=== PATIENT | male | born 2005 | race Caucasian/White ===

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

== ENCOUNTER 2023-06-16 00:30 | Emergency (ER) | payer BC, OTHER ==
[2023-06-16 01:00] LABS: Absolute Lymphocytes (CBC) 2.3 K/uL (0.7-4.9); Hematocrit 45.3 % (39.6-49.0); Lymphocytes % 30.4 % (15.3-44.8); MCV 90.1 fL (80-100); MPV 8.5 fL (7.6-11.3); RBC Red Blood Cell Count 5.02 M/uL (4.33-5.43)
[2023-06-16] MEDS ORDERED: NA CHLORIDE 0.9% 1,000 ML ONE (01:02)
[2023-06-16 01:26] LABS: ALT/SGPT 27 U/L (16-61); Albumin 4.1 g/dL (3.4-5.0); Alkaline Phosphatase 86 U/L (45-117); BUN Blood Urea Nitrogen 5 mg/dL (7-18); Bicarbonate 23 mEq/L (21-32); Bilirubin Total 0.5 mg/dL (0.2-1.0); Glomerular Filtration Rate 98 ml/min (=/>90); Glucose Level 105 mg/dL (74-106); Protein, Total 7.3 g/dL (6.4-8.2); Sodium Level 137 mEq/L (136-145)
[2023-06-16 01:28] LABS: AST/SGOT 28 U/L (15-37); Magnesium 2.5 mg/dL (1.6-2.4); Troponin High Sensitivity < 3.0 pg/mL (<58.9)
--- NOTE | 2023-06-16 01:47 | ER ---
Nurse's Notes [facility] Name: Lester Malloy Age: 17 yrs Sex: Male : 2005 Arrival Date: 06/16/2023 Time: 00:30 Bed 15 Private MD: Diagnosis: Other seizures Presentation: 06/16 00:36 Chief complaint: EMS states: "He had been home from work about 20 minutes when a family vc1 member said he was seizing. When we arrived he was diaphoretic and nauseous. Once we arrived here he said he felt fine.". Coronavirus screen: Vaccine status: Patient reports being unvaccinated. Client denies travel out of the [place] in the last 14 days. At this time, the client does not indicate any symptoms associated with coronavirus-19. Ebola Screen: Patient negative for fever greater than or equal to 101.5 degrees Fahrenheit, and additional compatible Ebola Virus Disease symptoms Patient denies exposure to infectious person. Patient denies travel to an Ebola-affected area in the 21 days before illness onset. No symptoms or risks identified at this time. Initial Sepsis Screen: Does the patient meet any 2 criteria? HR > 90 bpm. No. Patient's initial sepsis screen is negative. Does the patient have a suspected source of infection? No. Patient's initial sepsis screen is negative. Risk Assessment: Do you want to hurt yourself or someone else? Patient reports no desire to harm self or others. Onset of symptoms was June 16, 2023. 00:36 Method Of Arrival: EMS: [facility] vc1 00:36 Acuity: SARAH 3 vc1 00:42 Care prior to arrival: IV initiated. 20 GA, in the left antecubital area. Activity vc1 prior to arrival: seizure. Triage Assessment: 00:43 General: Appears in no apparent distress. comfortable, Behavior is calm, cooperative, vc1 appropriate for age. Pain: Denies pain. EENT: No deficits noted. No signs and/or symptoms were reported regarding the EENT system. Neuro: [place] Agitation-Sedation Scale (RASS): 0 - Alert and Calm Level of Consciousness is awake, alert, obeys commands, Oriented to person, place, time, situation, Appropriate for age. Cardiovascular: No deficits noted. Respiratory: Airway is patent Respiratory effort is even, unlabored, Respiratory pattern is regular, symmetrical. GI: No deficits noted. No signs and/or symptoms were reported involving the gastrointestinal system. : No deficits noted. No signs and/or symptoms were reported regarding the genitourinary system. Derm: No deficits noted. No signs and/or symptoms reported regarding the dermatologic system. Musculoskeletal: No deficits noted. No signs and/or symptoms reported regarding the musculoskeletal system. Historical: - Allergies: 00:41 No Known Allergies; vc1 - Home Meds: 00:41 bupropion HCl 450 mg Oral Tablet, Extended Release 24 hr daily [Active]; vc1 - PMHx: 00:41 Depressive disorder; vc1 - PSHx: 00:41 None; vc1 - Immunization history:: Client reports having NOT received the Covid vaccine. - Social history:: Smoking status: Patient denies any tobacco usage or history of. - Family history:: not pertinent. Screenin:42 Abuse screen: Denies threats or abuse. Nutritional screening: No deficits noted. vc1 Tuberculosis screening: No symptoms or risk factors identified. 00:44 [facility] ED Fall Risk Assessment (Adult) History of falling in the last 3 months, vc1 including since admission No falls in past 3 months (0 pts) Confusion or Disorientation No (0 pts) Intoxicated or Sedated No (0 pts) Impaired Gait No (0 pts) Mobility Assist Device Used No (0 pt) Altered Elimination No (0 pt) Score/Fall Risk Level 0 - 2 = Low Risk Oriented to surroundings, Maintained a safe environment, Educated pt \\T\\ family on fall prevention, incl call for assistance when getting out of bed. Assessment: 01:35 Reassessment: No changes from previously documented assessment. Patient and/or family vc1 updated on plan of care and expected duration. Pain level reassessed. Patient is alert, oriented x 3, equal unlabored respirations, skin warm/dry/pink. Vital Signs: 00:36 BP 136 / 81; Pulse 112; Resp 18; Temp 98.1; Pulse Ox 99% ; Weight 81.65 kg; Height 6 vc1 ft. 0 in. ; Pain 0/10; 01:00 BP 124 / 78; Pulse 96; Resp 17; Pulse Ox 100% ; vc1 00:36 Body Mass Index 24.41 (81.65 kg, 182.88 cm) vc1 00:36 Pain Scale: Adult vc1 [place]man Coma Score: 00:43 Eye Response: spontaneous(4). Motor Response: obeys commands(6). Verbal Response: vc1 oriented(5). Total: 15. ED Course: 00:32 Patient arrived in ED. sb4 00:35 Eamon Madison MD is Attending Physician. rt 00:41 Triage completed. vc1 00:42 Arm band placed on right wrist. vc1 00:42 Maintain EMS IV. Dressing intact. Gauge \\T\\ site: 20G Left AC. vc1 00:44 Patient has correct armband on for positive identification. Bed in low position. Call vc1 light in reach. Pulse ox on. NIBP on. 00:45 Seizure precautions initiated. vc1 01:16 Chest Single View XRAY In Process Unspecified. EDMS 01:23 CT Head Brain wo Cont In Process Unspecified. EDMS 01:34 Bernie Gomes RN is Primary Nurse. vc1 01:46 Ronnie Lawrence MD is Referral Physician. rt 01:56 No provider procedures requiring assistance completed. IV discontinued, intact, vc1 bleeding controlled, No redness/swelling at site. Pressure dressing applied. 01:57 Provided Education on: Follow up with neurologist on Saturday, signs and symptoms of vc1 upcoming seizure.. Administered Medications: 01:01 Drug: NS 0.9% IV 1000 ml Route: IV; Rate: 1 bolus; Site: left antecubital; vc1 01:58 Follow up: IV Status: Completed infusion; IV Intake: 1000ml vc1 Medication: 00:44 VIS not applicable for this client. vc1 Intake: 01:58 IV: 1000ml; Total: 1000ml. vc1 Outcome: 01:46 Discharge ordered by . rt 01:56 Discharged to home ambulatory, with family. vc1 01:56 Condition: good 01:56 Discharge instructions given to patient, Instructed on discharge instructions, follow up and referral plans. Demonstrated understanding of instructions, follow-up care. 01:58 Patient left the ED. vc1 Signatures: Dispatcher [employer] EDMS Bernie Gomes RN RN vc1 Ary Pollack, PACarolineC PACarolineC sb4 Eamon Madison MD MD rt
--- NOTE | 2023-06-16 01:47 | EDPHYS ---
Physician Documentation [facility] Name: Lester Malloy Age: 17 yrs Sex: Male : 2005 Arrival Date: 06/16/2023 Time: 00:30 Bed 15 Private MD: ED Physician Eamon Madison HPI: 06/16 01:00 This 17 yrs old Male presents to ER via EMS with complaints of Probable Seizure. rt 01:00 Patient presents to the ED with possible seizure. Patient has never had a seizure rt previously. The patient reportedly went to the bathroom, became acutely dizzy described as lightheaded. He then lost consciousness, reported to have seizure-like activity, unclear how long this lasted for. He had return to baseline mental status but was supposedly confused following that. He denies other symptoms at this time, symptoms are moderate in severity, no other aggravating or alleviating factors. Historical: - Allergies: 00:41 No Known Allergies; vc1 - Home Meds: 00:41 bupropion HCl 450 mg Oral Tablet, Extended Release 24 hr daily [Active]; vc1 - PMHx: 00:41 Depressive disorder; vc1 - PSHx: 00:41 None; vc1 - Immunization history:: Client reports having NOT received the Covid vaccine. - Social history:: Smoking status: Patient denies any tobacco usage or history of. - Family history:: not pertinent. ROS: 01:00 Constitutional: Negative for fever, chills, and weight loss, Cardiovascular: Negative rt for chest pain, palpitations, and edema, Respiratory: Negative for shortness of breath, cough, wheezing, and pleuritic chest pain, MS/Extremity: Negative for injury and deformity, Skin: Negative for injury, rash, and discoloration, Psych: Negative for depression, anxiety, suicide ideation, homicidal ideation, and hallucinations. 01:00 Abdomen/GI: Positive for nausea, Negative for abdominal pain, vomiting. 01:00 Neuro: Positive for loss of consciousness, seizure activity. Exam: 01:00 Constitutional: This is a well developed, well nourished patient who is awake, alert, rt and in no acute distress. Head/Face: Normocephalic, atraumatic. Neck: Trachea midline, no thyromegaly or masses palpated, and no cervical lymphadenopathy. Supple, full range of motion without nuchal rigidity, or vertebral point tenderness. No Meningismus. Chest/axilla: Normal chest wall appearance and motion. Nontender with no deformity. No lesions are appreciated. Cardiovascular: Regular rate and rhythm with a normal S1 and S2. No gallops, murmurs, or rubs. Normal PMI, no JVD. No pulse deficits. Respiratory: Lungs have equal breath sounds bilaterally, clear to auscultation and percussion. No rales, rhonchi or wheezes noted. No increased work of breathing, no retractions or nasal flaring. Abdomen/GI: Soft, non-tender, with normal bowel sounds. No distension or tympany. No guarding or rebound. No evidence of tenderness throughout. 01:00 ECG was reviewed by the Attending Physician. 01:00 Neuro: Speech normal, cranial nerves II through XII intact, strength and sensation intact in upper and lower extremities. Vital Signs: 00:36 BP 136 / 81; Pulse 112; Resp 18; Temp 98.1; Pulse Ox 99% ; Weight 81.65 kg; Height 6 vc1 ft. 0 in. ; Pain 0/10; 01:00 BP 124 / 78; Pulse 96; Resp 17; Pulse Ox 100% ; vc1 00:36 Body Mass Index 24.41 (81.65 kg, 182.88 cm) vc1 00:36 Pain Scale: Adult vc1 [place] Coma Score: 00:43 Eye Response: spontaneous(4). Motor Response: obeys commands(6). Verbal Response: vc1 oriented(5). Total: 15. MDM: 00:35 Patient medically screened. rt 01:47 Differential diagnosis: Seizure, convulsive syncope, dysrhythmia, intracranial rt hemorrhage, tumor, electrolyte disturbance. Data reviewed: vital signs, nurses notes, lab test result(s), EKG, radiologic studies. I considered the following discharge prescriptions or medication management in the emergency department Medications were administered in the Emergency Department. See MAR. Independent interpretation of the following test(s) in the Emergency Department CT Scan: My interpretation is No hemorrhage seen on my interpretation of the CT scan images. Counseling: I had a detailed discussion with the patient and/or guardian regarding: the historical points, exam findings, and any diagnostic results supporting the discharge/admit diagnosis, lab results, radiology results, the need for outpatient follow up, Discussed with patient abstaining from driving or other risky activities until he is cleared by neurology. 06/16 00:46 Order name: CBC with Diff; Complete Time: :32 rt 06/16 00:46 Order name: CMP; Complete Time: :32 rt 06/16 00:46 Order name: Troponin High Sensitivity; Complete Time: 01:32 rt 06/16 00:46 Order name: Magnesium; Complete Time: 01:32 rt 06/16 00:46 Order name: TSH; Complete Time: :32 rt 06/16 00:46 Order name: CT Head Brain wo Cont rt 06/16 00:46 Order name: Chest Single View XRAY rt 06/16 00:46 Order name: EKG; Complete Time: 00:47 rt 06/16 00:46 Order name: EKG - Nurse/Tech; Complete Time: 01:34 rt EC:00 Rate is 91 beats/min. Rhythm is regular, Normal Sinus Rhythm with No ectopy. QRS [place] rt is Normal. DE interval is normal. QRS interval is normal. QT interval is normal. No Q waves. T waves are Normal. No ST changes noted. Interpreted by me. Administered Medications: 01:01 Drug: NS 0.9% IV 1000 ml Route: IV; Rate: 1 bolus; Site: left antecubital; vc1 01:58 Follow up: IV Status: Completed infusion; IV Intake: 1000ml vc1 Disposition Summary: 06/16/23 01:46 Discharge Ordered Location: Home rt Problem: new rt Symptoms: are resolved rt Condition: Stable rt Diagnosis - Other seizures rt Followup: rt - With: Ronnie Lawrence MD - When: 2 - 3 days - Reason: Discharge Instructions: - Discharge Summary Sheet rt - Seizure, Adult rt Forms: - Medication Reconciliation Form rt - Thank You Letter rt - Antibiotic Education rt - Prescription Opioid Use rt - Patient Portal Instructions rt Signatures: Dispatcher [employer] Bernie Drew RN RN vc1 Eamon Madison MD MD rt
[2023-06-16 02:05] VITALS: TEMP 98.1
[2023-06-16 02:07] VITALS: BP 124/78; O2SAT 100
--- NOTE | 2023-06-16 11:29 | RAD REPORT ---
EXAM DESCRIPTION: RAD - Chest Single View - 06/16/2023 1:14 am CLINICAL HISTORY: The patient is 17 years old and is Male; seizure TECHNIQUE: Frontal view of the chest. COMPARISON: No relevant prior studies available. FINDINGS: Lungs: Unremarkable. No consolidation. Pleural space: Unremarkable. No pneumothorax. Heart: Unremarkable. Mediastinum: Unremarkable. Bones/joints: Unremarkable. IMPRESSION: No acute findings in the chest. Electronically signed by: Darwin Carter MD 06/16/2023 1:29 AM CDT Due to temporary technical issues with the PACS/Fluency reporting system, reports are being signed by the in house radiologists without review as a courtesy to insure prompt reporting. The interpreting radiologist is fully responsible for the content of the report.
--- NOTE | 2023-06-16 11:44 | RAD REPORT ---
EXAM DESCRIPTION: CT - Head Brain Wo Cont - 06/16/2023 7:09 am CLINICAL HISTORY: The patient is 17 years old and is Male; SEIZURE TECHNIQUE: Axial computed tomography images of the head/brain without intravenous contrast. Sagitt al and coronal reformatted images were created and reviewed. This CT exam was performed using one o r more of the following dose reduction techniques: automated exposure control, adjustment of the mA and/or kV according to patient size, and/or use of iterative reconstruction technique. COMPARISON: No relevant prior studies available. FINDINGS: Brain: Unremarkable. No hemorrhage. No significant white matter disease. No edema. Ventricles: Unremarkable. No ventriculomegaly. Bones/joints: Unremarkable. No acute fracture. Soft tissues: Unremarkable. Sinuses: Unremarkable as visualized. Mastoid air cells: Unremarkable as visualized. No mastoid effusion. IMPRESSION: No acute intracranial abnormality. Electronically signed by: Darwin Carter MD 06/16/2023 1:29 AM CDT Due to temporary technical issues with the PACS/Fluency reporting system, reports are being signed by the in house radiologists without review as a courtesy to insure prompt reporting. The interpreting radiologist is fully responsible for the content of the report.
--- NOTE | 2023-06-17 11:46 | EKG ---
Test Date: 2023-06-16 Test Time: 01:02:40 Hand Sign Writer: MEREDITH MEASUREMENT RESULTS: Intervals: Rate: 91 [place]: 182 QRSD: 122 QT: 352 QTc: 432 [place]: P: 54 [place]: 182 QRS: 69 T: 25 INTERPRETIVE STATEMENTS: Normal sinus rhythm Normal ECG No previous ECG available for comparison Electronically Signed On 06-17-23 11:44:01 CDT by Romulo Jimenez
== END 2023-06-16 01:58 | disposition home or self-care (01) ==
LOC: ER 00:30
DX: R56.9 Unspecified convulsions (principal); F32.A Depression, unspecified
CPT/HCPCS: 93005; 85025; 36415; 83735; 84443; 84484; 80053; 70450; 71045; 96360; 99284; J7030